=== PATIENT | male | born 1970 ===

== ENCOUNTER → 2018-06-17 | Outpatient (CLI) | payer BC | END | disposition home or self-care (01) | LOC: C.PATHSPEC 17:30 | PROVIDERS: ATTEND Urology | DX: N41.9 Inflammatory disease of prostate, unspecified (principal); N39.0 Urinary tract infection, site not specified ==

== ENCOUNTER → 2018-07-03 | Outpatient (CLI) | payer BC ==
--- NOTE | 2018-07-03 07:29 | DIAGNOSTIC IMAGING REPORT ---
(DICK/BLAD)RETROPERITON COMP HISTORY: Prosthetic enlargement N40.1 Benign prostatic hyperplasia with urinary [id number] COMPARISON: None. FINDINGS: Right kidney: Maximum dimension 11.3 cm. No evidence for hydronephrosis. Several cysts measuring to 1.9 cm. Normal corticomedullary differentiation and cortical thickness. Left kidney: Maximum dimension 11.4 cm. No evidence for hydronephrosis. Normal corticomedullary differentiation and cortical thickness. Bladder: No bladder wall thickening. The bilateral ureteral jets were identified. IMPRESSION: 1. Several small right renal cyst. 2. Otherwise normal renal ultrasound. 3. No evidence for hydronephrosis. The above report was generated using voice recognition software. It may contain grammatical, syntax or spelling errors. Electronically signed by: Nicholas Clay M.D. 07/03/2018 7:28 AM Dictated Date/Time: 07/03/2018 7:27 AM
== END | disposition home or self-care (01) ==
LOC: C.ULTR 06:46
PROVIDERS: ATTEND Urology
DX: N39.0 Urinary tract infection, site not specified (principal); N40.1 Benign prostatic hyperplasia with lower urinary tract symptoms; N28.1 Cyst of kidney, acquired